=== PATIENT | female | born 1965 | race Caucasian/White ===

== ENCOUNTER 2023-06-11 14:47 | Observation (INO) | payer BC ==
--- OUTSIDE RECORDS SUMMARY | 2023-06-11 14:51 | XMS REPORT | Continuity of Care Document ---
:1965 Author Organization [facility] t Address [address] [facility] [address] [place] [address] Care Team Providers Name Role Phone Asked, No Pcp Primary Care Physician Unavailable RADHA DIAZ Attending Clinician Unavailable Problems Condition Condition Condition Status Onset Resolution Last Treating Co mments Source Name Details Category Date Date Treatment Clinician Date Essential Essential Disease Active Met hodi hypertensi hypertensi 3-09 st on on 00:00: Hospita 00 l SOB SOB Disease Active [facility] (shortness (shortness 3-09 st of breath) of breath) 00:00: Ho spita 00 l Allergies, Adverse Reactions, Alerts This patient has no known allergies or adverse reactions. Social History Social Habit Start Date Stop Date Quantity Comments Source Sexual orientation Method [facility] Sex Assigned At [birth year] Met [facility] 00:00:00 00:00:00 Smoking Status Start Date Stop Date Source Tobacco smoking consumption unknown [facility] Medications Ordered Filled Start Stop Current Ordering Indication Dosage Frequency Signature Comments Components Source Medication Medication Date Date Medication? Clinician (SIG) Name Name ALPRAZolam Yes .5mg Q8H Take 0.5 Met hodi (XANAX) 0.5 3-[address] MG tablet 12:01: mouth Hospita 26 every 8 l (eight) hours. sertraline Yes 50mg QD Take 50 mg M ethodi (ZOLOFT) 50 3-[address] MG tablet 12:01: daily. Hospit a 26 l methylPREDN Yes 4mg QD Take 4 mg M ethodi ISolone 3-[address] (MEDROL) 4 12:01: daily. Hospi ta MG tablet 25 l benzonatate Yes 100mg Q.[id number] Take 100 [facility] (TESSALON) 3-[id number] 100 MG 12:01: 3D mouth 3 Hospita capsule 25 (three) l times a day as needed for cough. potassium Yes 10meq QD Take 10 Meth bert chloride 3-[address] (Klor-Con 12:01: mouth Hospita 10) 10 MEQ 25 daily. l CR tablet furosemide Yes [id number] 40mg QD Take 1 [facility] (LASIX) 40 3-09 tablet (40 st mg tablet 00:00: mg total) Hos daniel 00 by mouth l daily. Procedures This patient has no known procedures. Plan of Care Planned Activity Planned Date Details Comments Source Future Scheduled 2023-05-09 Screening for [facility] Test 11:22:37 malignant neoplasm of colon (procedure) [code = 486173090] Future Scheduled 2023-05-09 Screening for [facility] Test 11:22:37 malignant neoplasm of colon (procedure) [code = 162467425] Future Scheduled 2023-05-09 Screening for [facility] Test 11:22:37 malignant neoplasm of colon (procedure) [code = 165103815] Future Scheduled 2023-05-09 COVID-19 VACCINE [facility] Test 11:22:37 (#1) [code = COVID-19 VACCINE (#1)] Future Scheduled 2023-05-09 [facility] 11:22:37 screening (procedure) [code = 810223512] Future Scheduled 2023-05-09 [facility] Test 11:22:37 malignant neoplasm of cervix (procedure) [code = 380030058] Future Scheduled 2023-05-09 BREAST CANCER [facility] Test 11:22:37 SCREENING [code = BREAST CANCER SCREENING] Future Scheduled 2023-05-09 [facility] Test 11:22:37 malignant neoplasm of colon (procedure) [code = 736999945] Future Scheduled 2023-05-09 [facility] Test 11:22:37 malignant neoplasm of colon (procedure) [code = 831436206] Future Scheduled 2023-05-09 [facility]INES [facility] 11:22:37 (1 of 2) [code = SHINGLES VACCINES (1 of 2)] Future Scheduled 2023-05-09 INFLUENZA VACCINE [facility] Test 11:22:37 (#1) [code = INFLUENZA VACCINE (#1)] Encounters Start End Encounter Admission Attending Care Care Encounter Source Date/Time Date/Time Type Type Clinicians Facility Department ID 2020-09-21 2020-09-21 Outpatient [facility]E [facility] [id number] [address] [place] [address] 00:00:00 00:00:00 RADHA [address] Results This patient has no known results.
[2023-06-11 15:52] LABS: Absolute Lymphocytes (CBC) 4.7 K/uL (0.7-4.9); Hematocrit 44.8 % (36.0-45.0); Lymphocytes % 39.3 % (15.3-44.8); MCV 90.3 fL (80-100); MPV 8.7 fL (7.6-11.3); Platelets 342 thou/uL (152-406); RBC Red Blood Cell Count 4.96 M/uL (3.86-4.86)
[2023-06-11 16:14] LABS: Bilirubin Direct 0.1 mg/dL (0-0.2); Bilirubin Indirect, Calculated 0.3 mg/dL (0.2-0.8); Bilirubin Total 0.4 mg/dL (0.2-1.0); Magnesium 2.1 mg/dL (1.6-2.4); Potassium 4.3 mEq/L (3.5-5.1); Protein, Total 8.3 g/dL (6.4-8.2)
[2023-06-11 16:16] LABS: Troponin High Sensitivity 961.7 pg/mL (<58.9)
--- NOTE | 2023-06-11 16:17 | RAD REPORT ---
EXAM DESCRIPTION: Neftaly Single View06/11/2023 3:27 pm CLINICAL HISTORY: CHEST PAIN COMPARISON: No comparisons TECHNIQUE: Portable AP view of the chest. FINDINGS: The lungs are clear. No pneumothorax or effusion. The cardiomediastinal contours are unre markable. IMPRESSION: No acute cardiopulmonary process.
[2023-06-11 17:11] LABS: SARS-COV-2 RT PCR POSITIVE (NEGATIVE)
--- NOTE | 2023-06-11 19:43 | ER ---
Nurse's Notes [facility] Name: Violetta Fox Age: 57 yrs Sex: Female : 1965 Arrival Date: 06/11/2023 Time: 14:47 Bed 16 Private MD: Diagnosis: Subsequent non-ST elevation (NSTEMI) myocardial infarction;COVID-19 Presentation: 06/11 15:04 Chief complaint: Patient states: "On morning, I feel like I can't catch my mb9 breath after walking. My mother in law in had COVID and was around us. Pt denies chest pain. Coronavirus screen: Vaccine status:. Coronavirus screen: Vaccine status: Patient reports being unvaccinated. Ebola Screen: No symptoms or risks identified at this time. Initial Sepsis Screen: Does the patient meet any 2 criteria? No. Patient's initial sepsis screen is negative. Does the patient have a suspected source of infection? No. Patient's initial sepsis screen is negative. Risk Assessment: Do you want to hurt yourself or someone else? Patient reports no desire to harm self or others. Onset of symptoms was June 11, 2023. 15:04 Method Of Arrival: Ambulatory mb9 15:04 Acuity: SONNY 3 mb9 Triage Assessment: 15:07 General: Appears uncomfortable, Behavior is calm, cooperative. Pain: Denies pain. EENT: mb9 No signs and/or symptoms were reported regarding the EENT system. Neuro: Monzon Agitation-Sedation Scale (RASS): 0 - Alert and Calm Level of Consciousness is awake, alert, obeys commands, Oriented to person, place, time, situation, Appropriate for age. Cardiovascular: Reports chests tightness. Respiratory: Reports shortness of breath Airway is patent Respiratory effort is even, unlabored, Respiratory pattern is regular, symmetrical. GI: No signs and/or symptoms were reported involving the gastrointestinal system. : No signs and/or symptoms were reported regarding the genitourinary system. Derm: Skin is pink, warm \\T\\ dry. Musculoskeletal: Range of motion: intact in all extremities. Historical: - Allergies: 15:06 NKA; mb9 - PMHx: 15:06 Hypertensive disorder; mb9 - Immunization history:: Adult Immunizations up to date. - Social history:: Smoking status: Patient reports the use of cigarette tobacco products, denies chronic smoking, but will smoke occasionally. - Family history:: not pertinent. Screenin:43 [facility] ED Fall Risk Assessment (Adult) History of falling in the last 3 months, tm6 including since admission No falls in past 3 months (0 pts). Abuse screen: Denies threats or abuse. Denies injuries from another. Nutritional screening: No deficits noted. Tuberculosis screening: No symptoms or risk factors identified. Assessment: 15:08 Reassessment: EKG done in triage. mb9 15:43 General: Appears in no apparent distress. Behavior is calm, cooperative, appropriate tm6 for age. Pain: Complains of pain in chest Pain does not radiate. Quality of pain is described as feels like hot water going up and down over my head and chest Pain began 2-3 days ago. Neuro: Level of Consciousness is awake, alert, obeys commands, Oriented to person, place, time, situation. Cardiovascular: Capillary refill < 3 seconds Patient's skin is warm and dry. Rhythm is sinus rhythm. Respiratory: Airway is patent Respiratory effort is even, unlabored, Respiratory pattern is regular, symmetrical. GI: Abdomen is flat, non-distended. : No signs and/or symptoms were reported regarding the genitourinary system. EENT: No signs and/or symptoms were reported regarding the EENT system. Derm: No signs and/or symptoms reported regarding the dermatologic system. Musculoskeletal: No signs and/or symptoms reported regarding the musculoskeletal system. 17:26 Reassessment: Patient appears in no apparent distress at this time. No changes from tm6 previously documented assessment. Patient and/or family updated on plan of care and expected duration. Pain level reassessed. Patient is alert, oriented x 3, equal unlabored respirations, skin warm/dry/pink. 18:05 Reassessment: Patient appears in no apparent distress at this time. No changes from tm6 previously documented assessment. 18:40 Reassessment: Patient appears in no apparent distress at this time. No changes from tm6 previously documented assessment. Patient and/or family updated on plan of care and expected duration. Pain level reassessed. 19:38 Reassessment: Patient appears in no apparent distress at this time. Patient and/or as6 family updated on plan of care and expected duration. Pain level reassessed. Patient is alert, oriented x 3, equal unlabored respirations, skin warm/dry/pink. 21:09 General: attempted to call report, nurse was in pt room, said would call back . as6 Vital Signs: 15:04 BP 177 / 124; Pulse 82; Resp 18; Temp 98; Pulse Ox 100% ; Weight 72.57 kg; Height 5 ft. mb9 3 in. ; 15:43 BP 165 / 102; Pulse 75; Resp 17; Pulse Ox 98% on R/A; Pain 0/10; tm6 16:39 BP 167 / 93; Pulse 82; Pulse Ox 98% on R/A; tm6 17:25 BP 184 / 95; Pulse 80; Pulse Ox 99% on R/A; Pain 0/10; tm6 18:04 BP 163 / 99; Pulse 85; Pulse Ox 97% ; tm6 18:40 BP 185 / 96; Pulse 74; Pulse Ox 98% on R/A; tm6 19:35 BP 168 / 99; Pulse 73; Resp 16 S; Pulse Ox 97% on R/A; as6 21:19 BP 176 / 90; Pulse 72; Resp 18 S; Pulse Ox 98% on R/A; as6 15:04 Body Mass Index 28.34 (72.57 kg, 160.02 cm) mb9 15:43 Pain Scale: Adult tm6 17:25 Pain Scale: Adult tm6 ED Course: 14:50 Patient arrived in ED. rg4 14:59 Rob Welch MD is Attending Physician. rt 15:06 Triage completed. mb9 15:07 Arm band placed on. mb9 15:09 EKG done, by ED staff, reviewed by Rob Welch MD. mb9 15:29 XRAY Chest (1 view) In Process Unspecified. EDMS 15:41 COVID-19/FLU A+B Sent. ld1 15:41 Basic Metabolic Panel Sent. ld1 15:41 CBC with Diff Sent. ld1 15:41 LFT's Sent. ld1 15:41 Magnesium Sent. ld1 15:41 NT PRO-BNP Sent. ld1 15:41 Troponin HS Sent. ld1 15:41 Inserted saline lock: 20 gauge in left antecubital area, using aseptic technique. Blood ld1 collected. 15:43 Romel Robert, RN is Primary Nurse. tm6 15:43 Patient has correct armband on for positive identification. Placed in gown. Bed in low tm6 position. Call light in reach. Side rails up X2. Provided Education on: need for cardiac monitoring. Client placed on continuous cardiac and pulse oximetry monitoring. NIBP monitoring applied. cage maker on. Door closed. Noise minimized. Lights dimmed. Warm blanket given. 15:43 No provider procedures requiring assistance completed. Patient maintains SpO2 tm6 saturation greater than 95% on room air. 19:41 Mitchell Wilkinson MD is Hospitalizing Provider. rt 20:50 Patient admitted, IV remains in place. as6 21:50 Primary Nurse role handed off by Romel Robert RN as6 06/12 08:34 Francoise Ahuja, CRAIG is Primary Nurse. aa5 Administered Medications: 06/11 19:51 Drug: Enoxaparin Sub-Q 1 mg/kg Sub-Q once Route: Sub-Q; Site: left lower abdomen; as6 21:12 Follow up: Response: No adverse reaction as6 Medication: 15:43 VIS not applicable for this client. tm6 Outcome: 19:42 Decision to Hospitalize by Provider. rt 20:50 Condition: stable as6 20:50 Instructed on the need for admit, 21:18 Admitted to Tele accompanied by tech, via wheelchair, room 418, with chart, Report as6 called to Tho SRINIVASAN 21:36 Patient left the ED. as6 06/12 13:14 Patient left the ED. mb9 Signatures: Dispatcher [employer] EDMS Francoise Ahuja, RN RN aa5 Jannette Chakraborty rg4 Anabella Salgado RN RN ld1 Chau Villegas RN RN as6 Shelly Kwon RN RN mb9 Rob Welch MD MD rt Romel Robert, CRAIG RN tm6 Corrections: (The following items were deleted from the chart) 06/11 15:08 15:04 Pulse 82bpm; Resp 18bpm; Pulse Ox 100%; Temp 98F; 72.57 kg; Height 5 ft. 3 in.; mb9 BMI: 28.3; mb9
--- NOTE | 2023-06-11 19:43 | EDPHYS ---
Physician Documentation [facility] Name: Violetta Fox Age: 57 yrs Sex: Female : 1965 Arrival Date: 06/11/2023 Time: 14:47 Bed 16 Private MD: ED Physician Rob Welch HPI: 06/11 20:24 This 57 yrs old Female presents to ER via Ambulatory with complaints of Chest Pressure. rt 20:24 Patient presents to the ED with chest pressure and shortness of breath for about 3 rt days. She reports no chest pain currently. Patient states that she is concerned for COVID as she had an exposure during the . Denies other acute complaints this time, symptoms are moderate severity, no other aggravating alleviating factors.. Historical: - Allergies: 15:06 NKA; mb9 - PMHx: 15:06 Hypertensive disorder; mb9 - Immunization history:: Adult Immunizations up to date. - Social history:: Smoking status: Patient reports the use of cigarette tobacco products, denies chronic smoking, but will smoke occasionally. - Family history:: not pertinent. ROS: 20:24 Constitutional: Negative for fever, chills, and weight loss, Abdomen/GI: Negative for rt abdominal pain, nausea, vomiting, diarrhea, and constipation, MS/Extremity: Negative for injury and deformity, Skin: Negative for injury, rash, and discoloration, Neuro: Negative for headache, weakness, numbness, tingling, and seizure, Psych: Negative for depression, anxiety, suicide ideation, homicidal ideation, and hallucinations, 20:24 Cardiovascular: Positive for chest pain, Negative for edema, 20:24 Respiratory: Positive for shortness of breath, Negative for cough, Exam: 20:24 Constitutional: This is a well developed, well nourished patient who is awake, alert, rt and in no acute distress. Head/Face: Normocephalic, atraumatic. Chest/axilla: Normal chest wall appearance and motion. Nontender with no deformity. No lesions are appreciated. Cardiovascular: Regular rate and rhythm with a normal S1 and S2. No gallops, murmurs, or rubs. Normal PMI, no JVD. No pulse deficits. Respiratory: Lungs have equal breath sounds bilaterally, clear to auscultation and percussion. No rales, rhonchi or wheezes noted. No increased work of breathing, no retractions or nasal flaring. Abdomen/GI: Soft, non-tender, with normal bowel sounds. No distension or tympany. No guarding or rebound. No evidence of tenderness throughout. Skin: Warm, dry with normal turgor. Normal color with no rashes, no lesions, and no evidence of cellulitis. MS/ Extremity: Pulses equal, no cyanosis. Neurovascular intact. Full, normal range of motion. Neuro: Awake and alert, GCS 15, oriented to person, place, time, and situation. Cranial nerves II-XII grossly intact. Motor strength 5/5 in all extremities. Sensory grossly intact. Cerebellar exam normal. Normal gait. Psych: Awake, alert, with orientation to person, place and time. Behavior, mood, and affect are within normal limits. 20:24 ECG was reviewed by the Attending Physician. Vital Signs: 15:04 BP 177 / 124; Pulse 82; Resp 18; Temp 98; Pulse Ox 100% ; Weight 72.57 kg; Height 5 ft. mb9 3 in. ; 15:43 BP 165 / 102; Pulse 75; Resp 17; Pulse Ox 98% on R/A; Pain 0/10; tm6 16:39 BP 167 / 93; Pulse 82; Pulse Ox 98% on R/A; tm6 17:25 BP 184 / 95; Pulse 80; Pulse Ox 99% on R/A; Pain 0/10; tm6 18:04 BP 163 / 99; Pulse 85; Pulse Ox 97% ; tm6 18:40 BP 185 / 96; Pulse 74; Pulse Ox 98% on R/A; tm6 19:35 BP 168 / 99; Pulse 73; Resp 16 S; Pulse Ox 97% on R/A; as6 21:19 BP 176 / 90; Pulse 72; Resp 18 S; Pulse Ox 98% on R/A; as6 15:04 Body Mass Index 28.34 (72.57 kg, 160.02 cm) mb9 15:43 Pain Scale: Adult tm6 17:25 Pain Scale: Adult tm6 MDM: 15:13 Patient medically screened. rt 20:24 Differential diagnosis: OK, CHF, PE, COVID. The patient was given aspirin in the rt Emergency Department. Data reviewed: vital signs, nurses notes, lab test result(s), EKG, radiologic studies. Consideration of Admission/Observation Patient was admitted/placed on observation. Management of patient was discussed with the following: Stitching Machine Setter: Request repeat troponin, Lovenox,. I considered the following discharge prescriptions or medication management in the emergency department Medications were administered in the Emergency Department. See MAR. Care significantly affected by the following chronic conditions: Hypertension. Counseling: I had a detailed discussion with the patient and/or guardian regarding the historical points, exam findings, and any diagnostic results supporting the discharge/admit diagnosis, lab results, radiology results, the need for further work-up and treatment in the hospital. Response to treatment: the patient's symptoms have markedly improved after treatment. 06/11 15:14 Order name: Basic Metabolic Panel; Complete Time: 16:20 rt 06/11 15:14 Order name: CBC with Diff; Complete Time: 16:20 rt 06/11 15:14 Order name: LFT's; Complete Time: 16:20 rt 06/11 15:14 Order name: Magnesium; Complete Time: 16:20 rt 06/11 15:14 Order name: NT PRO-BNP; Complete Time: 16:20 rt 06/11 15:14 Order name: Troponin HS; Complete Time: 16:20 rt 06/11 15:14 Order name: COVID-19/FLU A+B; Complete Time: 17:13 rt 06/11 17:52 Order name: Troponin High Sensitivity; Complete Time: 18:55 rt 06/11 20:38 Order name: Basic Metabolic Panel [facility] 06/11 20:38 Order name: Basic Metabolic Panel [facility] 06/11 20:38 Order name: CBC with Automated Diff [facility] 06/11 20:38 Order name: CBC with Automated Diff [facility] 06/11 20:38 Order name: Lipid Profile [facility] 06/11 20:38 Order name: Lipid Profile [facility] 06/11 20:38 Order name: Troponin High Sensitivity [facility] 06/11 20:38 Order name: Troponin High Sensitivity [facility] 06/11 20:38 Order name: Troponin High Sensitivity [facility] 06/11 20:38 Order name: Troponin High Sensitivity [facility] 06/11 15:14 Order name: XRAY Chest (1 view); Complete Time: 16:20 rt 06/11 20:54 Order name: Echo with Doppler [facility] 06/11 15:14 Order name: EKG; Complete Time: 15:15 rt 06/11 15:09 Order name: EKG - Nurse/Tech; Complete Time: 15:09 mb9 06/11 15:14 Order name: Cardiac monitoring; Complete Time: 15:41 rt 06/11 15:14 Order name: EKG - Nurse/Tech; Complete Time: 15:21 rt 06/11 15:14 Order name: IV Saline Lock; Complete Time: 15:41 rt 06/11 15:14 Order name: Labs collected and sent; Complete Time: 15:41 rt 06/11 15:14 Order name: O2 Per Protocol; Complete Time: 15:29 rt 06/11 15:14 Order name: O2 Sat Monitoring; Complete Time: 15:30 rt EC:24 Rate is 81 beats/min. Rhythm is regular, Normal Sinus Rhythm with No ectopy. QRS [place] rt is Normal. [place] interval is normal. QRS interval is normal. QT interval is normal. Clinical impression: NSR w/ Non-specific ST/T Changes. Administered Medications: 19:51 Drug: Enoxaparin Sub-Q 1 mg/kg Sub-Q once Route: Sub-Q; Site: left lower abdomen; as6 21:12 Follow up: Response: No adverse reaction as6 Disposition Summary: 06/11/23 19:42 Hospitalization Ordered Notes: Hospitalization Status: Observation rt Provider: Mitchell Wilkinson rt Condition: Stable rt Problem: new rt Symptoms: have improved rt Bed/Room Type: Standard rt Location: [facility] ER HOLD(06/11/23 22:23) Room Assignment: ERHOLD-(06/11/23 22:23) kl Diagnosis - Subsequent non-ST elevation (NSTEMI) myocardial infarction rt - COVID-19 rt Forms: - Medication Reconciliation Form rt - SBAR form rt - Leadership Thank You Letter rt Signatures: Dispatcher [employer] Fadumo Gotti RN RN kl Slawson, Ashby, RN RN as6 Shelly Kwon RN RN mb9 Rob Welch MD MD rt Corrections: (The following items were deleted from the chart) 20:49 19:42 rt kl 21:16 20:49 410 kl kl 22:23 19:42 Telemetry/MedSurg (observation) rt kl 22:23 21:16 418 kl kl
[2023-06-11] MEDS ORDERED: ENOXAPARIN 80 MG/0.8 ML SQ ONE (20:03)
[2023-06-11] MEDS ORDERED: ACETAMINOPHEN 325 MG TABLET PO PRN ×2 (20:29→22:15)
[2023-06-11] MEDS ORDERED: ONDANSETRON 4 MG/2 ML VIAL IV PRN (20:29)
--- NOTE | 2023-06-11 20:38 | P.HP ---
Certification for Inpatient Patient admitted to: Observation With expected LOS: >2 Midnights Practitioner: I am a practitioner with admitting privileges, knowledge of patient current condition, hospital course, and medical plan of care. Services: Services provided to patient in accordance with Admission requirements found in Title 42 Section 412.3 of the Code of Federal Regulations Patient History Date of Service: 06/12/23 Reason for admission: NSTEMI History of Present Illness: 57-year-old female patient with medical history significant for suspected coronary artery disease who was evaluated for episode of feeling unwell. She reported that she had exposure to COVID and was just recovering but she began to feel more unwell. She has some feeling of lethargy and she decided to come to the ED for evaluation. In the ED, initial troponin was elevated at 900 and because of concern for ACS she was admitted for inpatient care. Patient reported that 2 years ago she had similar episode and she was worked up at outside hospital without any significant finding on left heart cath. She denies overt chest pain, nausea, vomiting, fever, chills. She denies shortness of dana th orthopnea symptoms. Allergies No Known Allergies Allergy (Unverified 06/11/23 22:22) Home Medications: Metoprolol Tartrate 100 mg PO DAILY 06/12/23 Review of Systems General: Weakness, Malaise Eyes: Unremarkable ENT: Unremarkable Respiratory: Unremarkable Cardiovascular: Unremarkable Gastrointestinal: Unremarkable Genitourinary: Unremarkable Musculoskeletal: Unremarkable Integumentary: Unremarkable Neurological: Unremarkable Physical Examination - Physical Exam General: Alert, Oriented x3 HEENT: Atraumatic Neck: Supple Respiratory: Normal air movement Cardiovascular: Regular rate/rhythm, Normal S1 S2 Gastrointestinal: Soft and benign Musculoskeletal: No swelling Neurological: Normal speech - Studies Laboratory Data (last 24 hrs) 06/11/23 06/11/23 15:37 15:37 WBC 11.90 H Hgb 15.2 H Hct 44.8 Plt Count 342 Sodium 138 Potassium 4.3 BUN 12 Creatinine 1.18 H Glucose 144 H Magnesium 2.1 Total Bilirubin 0.4 AST 81 H ALT 93 H Alkaline Phosphatase 98 Assessment and Plan - Plan NSTEMI: Elevated troponin noted. Telemetry to be continued. Echocardiogram ordered. Anticoagulation with Lovenox to be continued. Cardiology consulted for management recommendation COVID-19 disease: Test is positive but patient reported feeling well. Follow clinical symptomatology. Prophylaxis: Therapeutic Lovenox for ACS management CODE STATUS: Full code. disposition: Workup suspected NSTEMI and discharge when she is deemed medically cleared by cardiology service. - Advance Directives Does patient have a Living Will: No Does patient have a Durable POA for Healthcare: No
[2023-06-11] MEDS ORDERED: NA CHLORIDE 0.9% 1,000 ML IV SCH ×2 (21:00→23:00)
[2023-06-11 22:07] VITALS: O2SAT 98
[2023-06-11 22:26] VITALS: BMI 28.3
[2023-06-12 04:59] LABS: Hematocrit 41.8 % (36.0-45.0); Lymphocytes % 30.1 % (15.3-44.8); MCV 89.8 fL (80-100); Platelets 282 thou/uL (152-406); Potassium 3.8 mEq/L (3.5-5.1); RBC Red Blood Cell Count 4.65 M/uL (3.86-4.86)
[2023-06-12 05:00] LABS: Troponin High Sensitivity 846.8 pg/mL (<58.9)
[2023-06-12] MEDS ORDERED: ENOXAPARIN 80 MG/0.8 ML SQ SCH (09:00)
[2023-06-12] MEDS ORDERED: ENOXAPARIN 80 MG/0.8 ML SQ ONE (09:53)
[2023-06-12] MEDS ORDERED: NA CHLORIDE 0.9% 1,000 ML ONE (09:53)
[2023-06-12 10:15] VITALS: BP 178/101; TEMP 97.1
--- NOTE | 2023-06-12 12:21 | CON ---
Date of Consultation: 06/12/2023 Reason For Consultation: Elevated troponin. History Of Present Illness: A 57-year-old female, who is well known to me, she had a coronary angiog mary ann that was normal about 2 to 3 years ago, presented to the emergency room with flu-like symptoms. She had exposure to COVID recently, felt slightly short of breath and minimal cough. Upon evaluation in the emergency room, troponin was minimally elevated. Hence, I was consulted. She denies having any chest pain. Past Medical History: None. Medications: None. Allergies: NO KNOWN DRUG ALLERGIES. Family History: No premature coronary artery disease or cancer. Social History: She does not smoke or drink. Does not use any drugs. Review of Systems: All systems reviewed and are negative except as mentioned in HPI. Physical Examination: Vital Signs: Reviewed. Head and Neck: Pupils are equal, reactive to light. Intact eye movements. No JVD. No cervical lym phadenopathy. Neck: Supple. Thyroid is not enlarged. Lungs: Clear to auscultation bilaterally. No wheezing or crackles. No accessory muscle use. Heart: Regular rate and rhythm. No extra sounds. Abdomen: Soft, nontender. Bowel sounds positive. No organomegaly. No masses or hernia. No rigidi ty or rebound. Extremities: No edema, clubbing, cyanosis. Intact pulses. Skin: No rashes. Neurologic: Alert, awake, oriented x3. No acute focal deficits appreciated. Investigations: Troponin 961, down to 846, BUN 13, creatinine 0.98, and hemoglobin is 14.1. NT-proB TURBINE INSPECTOR is 2774. Assessment/recommendation: 1.Elevated troponin. No chest pain. She does not have any significant coronary artery disease. Th is is likely COVID related. We will monitor clinically and plan for a stress test and an echo as an outpatient. No need to do any inpatient workup. 2.Elevated NT-proBNP. She does not look fluid overloaded. I would recommend to discontinue IV flui ds and monitor clinically and please place her on baby aspirin 81 mg daily and I will monitor the pat ient with you. SR/MODL Voice ID: [id number] Report ID: [id number]
--- NOTE | 2023-06-12 12:35 | P.DS ---
Admission Date: 06/11/23 Discharge Date: 06/12/23 Disposition: ROUTINE DISCHARGE Discharge Condition: FAIR Reason for Admission: NSTEMI - Problems (1) NSTEMI (non-ST elevated myocardial infarction) Current Visit: Yes Status: Acute (2) COVID-19 Current Visit: Yes Status: Acute (3) Hypertension Current Visit: Yes Status: Acute Brief History of Present Illness: 57-year-old female patient with medical history significant for hypertension presented to the emergency department with a complaint of feeling unwell. She reported that she had exposure to COVID and was just recovering but she began to feel more unwell. She has some feeling of lethargy and she decided to come to the ED for evaluation. In the ED, initial troponin was elevated at 900 and because of concern for ACS she was hospitalized for further evaluation. Patient reported that 2 years ago she had similar episode and she was worked up at outside hospital without any significant finding on left heart cath. She denied any chest pain, nausea, vomiting, fever, chills. Hospital Course: Patient placed under observation on the medical floor. Troponin trended was elevated but trended flat. Patient was asymptomatic, chest pain-free during the hospital stay. She was seen and evaluated by cardiology Dr. Vora who reported negative cardiac catheterization about 2 years ago and recommended no further intervention for the elevated troponin. Elevated troponin deemed secondary to COVID-19. Patient with stable vitals and currently asymptomatic. She is ambulatory. She is deemed stable for discharge. Home medications resumed on discharge. She plans to follow-up with Dr. Vora as an outpatient. Vital Signs/Physical Exam: Temp Pulse Resp BP Pulse Ox 97.1 F 84 18 178/101 H 98 06/12/23 08:00 06/12/23 08:00 06/12/23 08:00 06/12/23 08:00 06/12/23 08:00 General: Alert, In no apparent distress, Oriented x3 HEENT: Mucous membr. moist/pink Neck: Supple, JVD not distended Respiratory: Clear to auscultation bilaterally, Normal air movement Cardiovascular: No edema, Regular rate/rhythm, Normal S1 S2 Gastrointestinal: Soft and benign, Non-distended Musculoskeletal: No swelling Integumentary: No rashes, No cyanosis Neurological: Normal strength at 5/5 x4 extr Laboratory Data at Discharge: WBC 13.20 thou/uL (4.3-10.9) H 06/12/23 04:13 Hgb 14.1 g/dL (12.0-15.0) 06/12/23 04:13 Hct 41.8 % (36.0-45.0) 06/12/23 04:13 Plt Count 282 thou/uL (152-406) 06/12/23 04:13 Sodium 138 mEq/L (136-145) 06/12/23 04:13 Potassium 3.8 mEq/L (3.5-5.1) 06/12/23 04:13 BUN 13 mg/dL (7-18) 06/12/23 04:13 Creatinine 0.98 mg/dL (0.55-1.02) 06/12/23 04:13 Glucose 140 mg/dL (74-106) H 06/12/23 04:13 Magnesium 2.1 mg/dL (1.6-2.4) 06/11/23 15:37 Total Bilirubin 0.4 mg/dL (0.2-1.0) 06/11/23 15:37 AST 81 U/L (15-37) H 06/11/23 15:37 ALT 93 U/L (13-56) H 06/11/23 15:37 Alkaline Phosphatase 98 U/L (45-117) 06/11/23 15:37 Triglycerides 268 mg/dL (<150) H 06/12/23 04:13 Cholesterol 171 mg/dL (<200) 06/12/23 04:13 HDL Cholesterol 28 mg/dL (40-60) L 06/12/23 04:13 Cholesterol/HDL Ratio 6.11 06/12/23 04:13 Home Medications: Amlodipine [Norvasc*] 5 mg PO DAILY 06/12/23 Metoprolol Tartrate 100 mg PO BID 06/12/23 Diet: AHA Activity: Ad jovanna Followup: PRETTY OLSEN [Primary Care Provider] - Time spent managing pt's care (in minutes): 26
--- NOTE | 2023-06-12 12:56 | ECHO ---
HEIGHT: 5 ft 3 in WEIGHT: 159 lb 15.831 oz DATE OF STUDY: 06/12/[address]: Mitchell Wilkinson MD 2-DIMENSIONAL: YES M.MODE: YES DOPPLER: YES COLOR FLOW: YES TDS: PORTABLE: YES DEFINITY: BUBBLE STUDY: DIAGNOSIS: EVALUATION OF CHEST PAIN CARDIAC HISTORY: CATHERIZATION: YES SURGERY: NO PROSTHETIC VALVE: NO PACEMAKER: NO MEASUREMENTS (cm) DIASTOLIC (NORMALS) SYSTOLIC (NORMALS) IVSd 1.1 (0.6-1.2) LA Diam 3.2 (1.9-4.0) LVEF 45-50% LVIDd 4.4 (3.5-5.7) LVIDs 3.2 (2.0-3.5) %FS 28% LVPWd 1.3 (0.6-1.2) Ao Diam 2.7 (2.0-3.7) 2 DIMENSIONAL ASSESSMENT: RIGHT ATRIUM: NORMAL LEFT ATRIUM: NORMAL RIGHT VENTRICLE: NORMAL LEFT VENTRICLE: NORMAL TRICUSPID VALVE: NORMAL MITRAL VALVE: MILD MITRAL REGURGITATION PULMONIC VALVE: NORMAL AORTIC VALVE: NORMAL PERICARDIAL EFFUSION: NONE AORTIC ROOT: NORMAL LEFT VENTRICULAR WALL MOTION: MILD GLOBAL HYPOKINESIS DOPPLER/COLOR FLOW: SEE BELOW COMMENTS: 1. MILDLY DEPRESSED LEFT VENTRICULAR EJECTION FRACTION 45-50% 2. MILD GLOBAL HYPOKINESIS 3. MILD MITRAL REGURGITATION 4. MODERATE DIASTOLIC DYSFUNCTION TECHNOLOGIST: MELINDA ESPINOZA
--- NOTE | 2023-06-14 15:27 | EKG ---
Test Date: 2023-06-11 Test Time: 15:09:25 Coroner/Medical Examiner: CINDI MEASUREMENT RESULTS: Intervals: Rate: 81 VA: 138 QRSD: 120 QT: 408 QTc: 473 [place]: P: 71 VA: 138 QRS: 9 T: -90 INTERPRETIVE STATEMENTS: Normal sinus rhythm Incomplete left bundle branch block ST & T wave abnormality, consider inferolateral ischemia Abnormal ECG No previous ECG available for comparison Electronically Signed On 06-14-23 15:15:48 SALES REPRESENTATIVE [employer] by Davey Vora
== END 2023-06-12 13:02 | disposition home or self-care (01) ==
LOC: ER 14:47 → 4TH 21:13 → ERHOLD 23:07
PROVIDERS: ADMIT Internal Medicine Nephrology; ATTEND Internal Medicine
DX: I21.4 Non-ST elevation (NSTEMI) myocardial infarction (principal); U07.1 COVID-19; R79.89 Other specified abnormal findings of blood chemistry; I10 Essential (primary) hypertension; F17.210 Nicotine dependence, cigarettes, uncomplicated
CPT/HCPCS: 93005; 93306; 85025 ×2; 80048 ×2; 36415; 83735; 80061; 80076; 84484 ×5; 83880; 0240U; 71045; 96372; 99285; J7030; G0378 ×3